=== PATIENT | female | born 1940 | race Caucasian/White ===

== ENCOUNTER 2018-07-03 07:15 | Inpatient (IN) | payer OTHER ==
[~2018-07-03] VITALS: Ht 160 cm; Wt 84.8 kg
[~2018-07-03 07:15] MED LIST: CEFADROXIL500 MG PO; COUMADIN5 MG PO; NORVASC5 MG; NORVASC5 MG PO; PERCOCET 5/321 UDTAB PO; TOPROL XL50 M1 PO; XARELTO10 MG PO
[2018-07-03] MEDS ORDERED: TRAMADOL HCL50 MG PO (12:13)
[2018-07-03] MEDS ORDERED: SYNTHROID50 MCG PO (12:13)
[2018-07-03] MEDS ORDERED: GABAPENTIN600 MG PO (12:13)
[2018-07-03] MEDS ORDERED: AVAPRO300 MG PO (12:13)
[2018-07-16] MEDS ORDERED: DUI500 PO (16:34)
[2018-07-16] MEDS ORDERED: ELIQUIS2.5 MG PO (16:34)
[2018-07-16] MEDS ORDERED: PERCOCET 5-3251 EACH PO (16:34)
== END 2018-07-16 20:36 | DRG 464 ==
LOC: SURH 07-14 05:46 → O/R 07-14 05:46 → SURH 07-14 07:15
PROVIDERS: ADMIT Orthopaedic Surgery
PROC: 0SPD0JZ Removal of Synthetic Substitute from Left Knee Joint, Open Approach (ICD-10-PCS; 2018-07-14)
PROC: 0SND0ZZ Release Left Knee Joint, Open Approach (ICD-10-PCS; 2018-07-14)
PROC: 0SWD0JZ Revision of Synthetic Substitute in Left Knee Joint, Open Approach (ICD-10-PCS; principal; 2018-07-14 11:30)
DX: T84.032A Mechanical loosening of internal right knee prosthetic joint, initial encounter (principal); S72.452A Displaced supracondylar fracture without intracondylar extension of lower end of left femur, initial encounter for closed fracture; M80.00XA Age-related osteoporosis with current pathological fracture, unspecified site, initial encounter for fracture; K57.32 Diverticulitis of large intestine without perforation or abscess without bleeding; D62 Acute posthemorrhagic anemia; T84.018A Broken internal joint prosthesis, other site, initial encounter; M25.562 Pain in left knee; T84.84XA Pain due to internal orthopedic prosthetic devices, implants and grafts, initial encounter; G62.89 Other specified polyneuropathies; I10 Essential (primary) hypertension; Z96.652 Presence of left artificial knee joint; M17.12 Unilateral primary osteoarthritis, left knee